=== PATIENT | female | born 1965 | race Caucasian/White ===

== ENCOUNTER 2024-07-30 12:58 | Emergency (ER) | payer MEDICARE ==
[~2024-07-30] VITALS: Ht 152.4 cm; Wt 82.0 kg
[2024-07-30 13:07] VITALS: O2SAT 98
[2024-07-30] MEDS ORDERED: KETOROLAC 15MG/ML VIAL IM ONE (15:15)
[2024-07-30] MEDS ORDERED: HYDROCODONE/ACETAMINOPHEN 5/325MG TABLET PO ONE (15:30)
[2024-07-30] MEDS ORDERED: TAMS-54 MT (15:39)
[2024-07-30] MEDS: MORPHINE SULFATE 4 MG/ML INJ (FOR IV/IM USE) IM ONE (15:45)
[2024-07-30] MEDS: SODIUM CHLORIDE 0.9% 1,000 ML IV ONE (16:50)
[2024-07-30] MEDS: ACETAMINOPHEN 1000MG/100ML 100 ML IV ONE (17:04)
[2024-07-30 18:35] VITALS: BP 101/59; PULSE 77; RESP 16; TEMP 36.8; O2SAT 99
== END 2024-07-30 18:48 | disposition home or self-care (01) ==
LOC: ER 13:07
DX: N20.0 Calculus of kidney (principal)
CPT/HCPCS: 99285; 96374; 96372; J2270; J7030; 99284; J0131